=== PATIENT | female | born 1945 | race Caucasian/White ===

== ENCOUNTER → 2019-12-20 | Outpatient (CLI) | payer OTHER ==
--- NOTE | 2019-12-20 16:01 | REP ---
INDICATION: NON TOXIC DIFFUSE GOITER. COMPARISON: None. TECHNIQUE/RADIOTRACER AND DOSE: Following the intravenous administration of 27.3 mCi technetium 99 M sestamibi, 15 minutes and 3 hour images of the neck are performed in various projections, in addition to SPECT imaging in the axial, coronal and sagittal planes. FINDINGS: There is initial symmetrical salivary gland and thyroid uptake. There is an area of increased nodular uptake adjacent to the lower pole of the left lobe of the thyroid on the 15 minutes images. This persists on the 3 hour delayed images and is well-visualized on the SPECT images. 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 <Electronically signed by Kendall Scott > 12/20/19 1239
== END ==
LOC: M RAD 09:23
PROVIDERS: ATTEND Internal Medicine Endocrinology, Diabetes & Metabolism
DX: E04.0 Nontoxic diffuse goiter (principal)
CPT/HCPCS: 78070; 78803; A9500

== ENCOUNTER → 2021-08-21 | Outpatient (REF) | payer OTHER | LOC: M SFHCDERM 13:42 | PROVIDERS: ATTEND Physician Assistant | DX: L82.1 Other seborrheic keratosis (principal) ==